=== PATIENT | female | born 1975 | race African-American/Black ===

== ENCOUNTER 2017-04-09 09:05 | Emergency (ER) | payer OTHER ==
[~2017-04-09] VITALS: Ht 165.1 cm; Wt 56.7 kg
[2017-04-09 09:36] LABS: ABSOLUTE NEUTROPHILS 2.2 thou/uL (1.4-8.2); BASOPHILS 1.4 % (0.0-2.0); EOSINOPHILS 5.2 % (0.0-3.0); HEMATOCRIT 36.8 % (37.0-47.0); HEMOGLOBIN 12.1 gm/dL (12.0-15.0); LYMPHOCYTES 31.5 % (24.0-44.0); MCH 30.3 pg (26.0-34.0); MCV 91.6 fL (80.0-100.0); MONOCYTES 8.7 % (1.0-8.0); PLATELET COUNT 232 thou/uL (150-400); POLYS 53.2 % (36.0-66.0); RBC 4.01 mil/uL (4.20-5.00); RDW 14.3 % (10.5-14.5); WBC 4.2 thou/uL (4.0-11.0)
[2017-04-09 09:39] LABS: MANUAL DIFF NO
[2017-04-09 09:58] LABS: CALCIUM 8.8 mg/dL (8.5-10.1); CREATININE 0.9 mg/dL (0.6-1.0); POTASSIUM 3.6 mmol/L (3.5-5.1)
[2017-04-09 10:04] LABS: ALBUMIN 3.8 g/dL (3.4-5.0); DIRECT BILIRUBIN 0.2 mg/dL (<0.1-0.3); TOTAL BILIRUBIN 0.9 mg/dL (<0.1-1.0); TOTAL PROTEIN 7.2 g/dL (6.4-8.2)
[2017-04-09] MEDS ORDERED: IBUPROFEN 600600 M1 PO (10:37)
[2017-04-09] MEDS ORDERED: ONDANSETRON HCL4 M2 PO (10:40)
[2017-04-09 10:50] VITALS: BP 118/68
== END 2017-04-09 10:52 | disposition home or self-care (01) ==
LOC: ER 09:05
PROVIDERS: Nurse Practitioner
DX: R11.2 Nausea with vomiting, unspecified (principal); M19.90 Unspecified osteoarthritis, unspecified site; F17.210 Nicotine dependence, cigarettes, uncomplicated